=== PATIENT | male | born 1980 | race Caucasian/White ===

== ENCOUNTER 2023-07-26 08:10 | Emergency (ER) | payer MEDICAID ==
[~2023-07-26] VITALS: Ht 185.4 cm; Wt 81.6 kg
[2023-07-26 09:19] VITALS: BP 131/81; TEMP 98.3; O2SAT 98
== END 2023-07-26 10:45 | disposition home or self-care (01) ==
LOC: ER 08:10
DX: S56.413A Strain of extensor muscle, fascia and tendon of right middle finger at forearm level, initial encounter (principal); W22.8XXA Striking against or struck by other objects, initial encounter; Y93.89 Activity, other specified; Y92.89 Other specified places as the place of occurrence of the external cause; Y99.8 Other external cause status
CPT/HCPCS: 73140; A4606; A4663